=== PATIENT | female | born 1955 | race Caucasian/White ===

== ENCOUNTER → 2024-01-09 15:11 | Outpatient (REF) | payer MEDICARE, OTHER, SELFPAY | LOC: RAD 15:11 | PROVIDERS: ATTENDING PHYSICIAN Family Medicine | DX: S39.012A Strain of muscle, fascia and tendon of lower back, initial encounter (principal) | CPT/HCPCS: 72110 ==

== ENCOUNTER → 2024-09-09 10:50 | Outpatient (REF) | payer MEDICARE, OTHER, SELFPAY | LOC: WDC 10:50 | PROVIDERS: ATTENDING PHYSICIAN Family Medicine | DX: M81.0 Age-related osteoporosis without current pathological fracture (principal); Z12.31 Encounter for screening mammogram for malignant neoplasm of breast | CPT/HCPCS: 77063; 77067; 77080 ==

== ENCOUNTER 2024-12-23 08:14 | Emergency (ER) | payer MEDICARE, OTHER, SELFPAY ==
[2024-12-23 08:21] VITALS: BP 206/99
[2024-12-23 09:01] VITALS: BP 196/90
[2024-12-23 09:04] VITALS: BMI 17.6
[2024-12-23 09:17] VITALS: BP 183/78
--- NOTE | 2024-12-23 09:33 | ED.GENMED ---
History of Present Illness
General
Chief Complaint: Cardiac Symptoms
Source: patient
Exam Limitations: none
Time Seen by Provider: 12/23/24 09:10
History of Present Illness
History of Present Illness:
69-year-old female with history of Parkinson's presents with onset of left arm pain that woke her up this morning. There was also palpitations. She denies any tingling or numbness. She has a history of osteoporosis. For her Parkinson's she takes
boxing classes III times a week. Uncertain of an injury. She is right-hand dominant. The arm pain has improved since the onset however she still has palpitations. There is no pleuritic discomfort. No other complaints at this time
Past History
Past History
ED Past Medical History: HTN and Other (Parkinsons)
ED Past Surgical History: Orthopedic (right rotator cuff X 2)
Social History
Tobacco: Non-smoker
Alcohol: None
Personal:
Living: with family
Phy Exam
Physical Exam
Physical Exam:
General: Well-appearing female no acute respiratory distress
HEENT: Normocephalic atraumatic flat affect
Heart: Regular rate and rhythm
Lungs: Clear no wheeze
Musculoskeletal exam: The patient is slightly tender to the upper arm on the left side. No deformity good passive range of motion.
Vascular: 2+ radial pulses bilaterally
Course
Orders/Labs/Results
Orders:
Orders
12/23/24 08:22
EKG [Electrocardiogram (*1)] Urgent
Reason for Study: Other
Other Reason for Exam: arm pain
EKG- Treatment ONCE
12/23/24 09:25
CR Chest - 2 Views Urgent
Comment:
Reason For Exam: chest pain
CR Humerus - Left Min 2 Views* Urgent
Comment:
Reason For Exam: pain in arm
12/23/24 09:36
Complete Blood Count/With Diff Urgent
Comprehensive Metabolic Panel Urgent
Troponin I Urgent
Abnormal Lab Results
12/23/24
09:36
WBC 3.9 L 10^3/uL
(4.8-10.8)
RBC 3.85 L 10^6/uL
(4.20-5.40)
Hct 35.8 L %
(37.0-47.0)
MCH 32.5 H pg
(27.0-31.0)
Absolute Lymphs (auto) 1.0 L 10^3/uL
(1.2-3.4)
Chloride 108 H mmol/L
(98-107)
Glucose 116 H mg/dl
(70-99)
Total Bilirubin 1.6 H mg/dl
(0.2-1.3)
12/23/24 09:36
12/23/24 09:36
Vital Signs
Initial and Last Documented VS:
Initial Vital Signs
Temp Pulse Resp BP Pulse Ox
98.4 F 98 18 206/99 98
12/23/24 08:21 12/23/24 08:21 12/23/24 08:21 12/23/24 08:21 12/23/24 08:21
Last Documented Vital Signs
Temp Pulse Resp BP Pulse Ox
98.4 F 96 18 193/105 97
12/23/24 08:21 12/23/24 12:30 12/23/24 12:30 12/23/24 12:00 12/23/24 12:30
MDM/Problems Addressed
Differential Diagnosis Includes:
Left arm pain with palpitations. Consider strain. She has a history of osteoporosis and boxes 3 times a week for stress fracture. X-rays pending. Given the association with some chest symptoms will order EKG and labs to evaluate for any signs of
ACS
*Pulse Oximetry
SaO2: 98
Oxygen Mode of Delivery: Room air
Patient hypoxic: no
*Critical Care Note
Total Time (30-74mins, 75-104mins- exclusive of procedures): Not Applicable
Update Note
Update Note:
Chest x-ray and x-ray of the arm negative for acute traumatic injury. Cardiac workup negative. I suspect musculoskeletal arm pain recommend ibuprofen or Tylenol. No indication for admission.
ED Attending Note
-
Portions of this chart may have been created with voice recognition software.� Occasional wrong word or��sound alike� substitutions may have occurred due to the inherent limitations of voice recognition software.
Discharge Plan
Departure
Patient Disposition: Home (Routine Discharge)
Date of Disposition: 12/23/24
Time of Disposition: 12:34
Patient with high blood pressure during this ER visit?: No
Discharge Problem:
Arm pain
Prescriptions:
No Action
ropinirole 3 mg Tablet
3 mg PO HS
propranolol 10 mg Tablet
10 mg PO DAILY
lisinopril 10 mg Tablet
10 mg PO DAILY
carbidopa-levodopa 25-100 mg Tablet
1 tab PO DAILY
carbidopa-levodopa 25-100 mg Tablet
2 tab PO HS
Referrals:
Estefania Blanco MD [Family Provider, Family Practice]
Activity Restrictions/Additional Instructions:
You may use ibuprofen or Tylenol for pain. Return here if worse otherwise follow-up with your doctor
Interventions
Interventions:
*Risk Screen - Suicide Last Done: 12/23/24 09:04
*General Assessment Last Done: 12/23/24 09:42
*Neglect/Abuse Screening Last Done: 12/23/24 09:04
*ED- Fall Risk Assessment Last Done: 12/23/24 09:42
*ED COVID-19 Vaccine History Last Done: 12/23/24 09:42
ED- Pulmonary Assessment Last Done: 12/23/24 09:04
ED- Cardiac Assessment Last Done: 12/23/24 09:04
Discharge Date and Time
Print Language: CAMEROONIAN
[2024-12-23 09:53] LABS: % Basophils 0.5 % (0-2); % Eosinophils 0.8 % (0-6); % Immature Granulocytes 0.3 % (0-0.5); % Lymphocytes 25.1 % (20.5-51.1); % Neutrophils 64.3 % (42.2-75.2); Absolute Monocytes 0.4 10^3/uL (0.1-0.6); Absolute Neutrophils 2.5 10^3/uL (1.4-6.5); Hematocrit 35.8 % (37.0-47.0); Hemoglobin 12.5 g/dL (12.0-16.0); Mean Corp Hgb Conc. 34.9 g/dL (33.0-37.0); Mean Corpuscular Hgb 32.5 pg (27.0-31.0); Mean Platelet Volume 9.1 fL (7.4-10.4); Nucleated Red Blood Cells % 0 %; Platelet Count 287 10^3/uL (130-400); Red Blood Cell Count 3.85 10^6/uL (4.20-5.40); Red Cell Dist. Width 11.9 % (11.5-14.5); White Blood Cell Count 3.9 10^3/uL (4.8-10.8)
[2024-12-23 10:08] LABS: ALT (SGPT) < 10 U/L (0-35); AST (SGOT) 21 U/L (14-36); Albumin 4.2 g/dl (3.5-5.0); Alkaline Phosphatase 102 U/L (38-126); Blood Urea Nitrogen 17 mg/dl (7-17); Carbon Dioxide 29 mmol/L (22-30); Chloride 108 mmol/L (98-107); Estimated Creatinine Clearance 37 ml/min; Glucose 116 mg/dl (70-99); Potassium 4.1 mmol/L (3.5-5.1); Sodium 141 mmol/L (135-145); Total Bilirubin 1.6 mg/dl (0.2-1.3); Total Protein 6.6 g/dl (6.3-8.2); eGFR > 60.00
[2024-12-23 10:13] LABS: Troponin I < 0.012 ng/ml
[2024-12-23 11:00] VITALS: BP 187/81
[2024-12-23 12:00] VITALS: BP 193/105
--- NOTE | 2024-12-23 12:33 | EDRN ---
Chester FOX in room w/pt at this time.
--- NOTE | 2024-12-23 12:34 | EDRN ---
Pt OOB to BR and back to stretcher at this time.
== END 2024-12-23 12:57 | disposition home or self-care (01) ==
LOC: EMR 08:14
PROVIDERS: Physician Assistant; EMERGENCY PHYSICIAN Student in an Organized Health Care Education/Training Program; FAMILY PHYSICIAN Family Medicine
DX: M79.602 Pain in left arm (principal); R00.2 Palpitations; I10 Essential (primary) hypertension; G20.A1 Parkinson's disease without dyskinesia, without mention of fluctuations; M81.0 Age-related osteoporosis without current pathological fracture
CPT/HCPCS: 99285; 71046; 73060; 80053; 84484; 85025; 93005

== ENCOUNTER → 2025-05-13 10:29 | Outpatient (REF) | payer MEDICARE, OTHER, SELFPAY | LOC: RAD 10:29 | PROVIDERS: ATTENDING PHYSICIAN Internal Medicine Rheumatology; FAMILY PHYSICIAN Family Medicine | DX: M25.50 Pain in unspecified joint (principal); M81.0 Age-related osteoporosis without current pathological fracture | CPT/HCPCS: 73523 ==